=== PATIENT | female | born 1945 | race Caucasian/White ===

== ENCOUNTER 2018-08-30 07:57 | Emergency (ER) | payer MEDICARE, OTHER ==
[~2018-08-30] VITALS: Ht 157.5 cm; Wt 80.3 kg
[~2018-08-30 07:57] MED LIST: HYDR12.5 PO; METF-440 PO; ONDA4TAB11 PO; PANT20TA3 PO; PRED5TAB PO; TRAM50TA2 PO; VALS1TAB2 PO
[2018-08-30 08:02] VITALS: BP 171/74
[2018-08-30] MEDS ORDERED: KETOROLAC TROMETHAMINE INJ 30 MG/ML VIAL IM ONE ×2 (08:30→09:30)
--- NOTE | 2018-08-30 09:15 | NUR ---
Updated with plan of care medicated as per orders NAD await dispo
[2018-08-30] MEDS ORDERED: KETOROLAC TROMETHAMINE 15 MG/ML VIAL ONE (09:32)
--- NOTE | 2018-08-30 09:59 | NUR ---
Shoulder immobilizer applied by KONSTANTIN Gupta. For discharge- Aftercare Instructions given Home ambulatory Stable
== END 2018-08-30 10:00 | disposition home or self-care (01) ==
LOC: ER 07:57
DX: M25.511 Pain in right shoulder (principal); I10 Essential (primary) hypertension; E11.9 Type 2 diabetes mellitus without complications; M16.11 Unilateral primary osteoarthritis, right hip; Z90.710 Acquired absence of both cervix and uterus; Z85.43 Personal history of malignant neoplasm of ovary; Z79.84 Long term (current) use of oral hypoglycemic drugs; Z79.899 Other long term (current) drug therapy
CPT/HCPCS: 73030; 96372 ×2; 99283; J1885 ×2

== ENCOUNTER 2019-03-05 18:39 | Emergency (ER) | payer MEDICARE, OTHER ==
[~2019-03-05] VITALS: Ht 157.5 cm; Wt 81.6 kg
[2019-03-05] MEDS ORDERED: CEPHALEXIN MONOHYDRATE 500 MG CAPSULE PO ONE ×2 (19:16→19:30)
[2019-03-05] MEDS ORDERED: FUROSEMIDE 20 MG TABLET ONE (19:16)
[2019-03-05] MEDS ORDERED: SULFAMETH/TRIMETH 800/160 MG 1 UDTAB TABLET ONE (19:16)
[2019-03-05] MEDS ORDERED: FUROSEMIDE 20 MG TABLET PO ONE (19:30)
[2019-03-05] MEDS ORDERED: SULFAMETH/TRIMETH 800/160 MG 1 UDTAB TABLET PO ONE (19:30)
[2019-03-05 19:34] LABS: BASOPHILS % (AUTO) 0.1 % (0.0-2.0); EOSINOPHILS % (AUTO) 0.7 % (0.0-6.0); HEMATOCRIT 32 % (33-45); HEMOGLOBIN 10.6 g/dL (11.5-14.8); LYMPHOCYTES # (AUTO) 0.9 /CMM (0.8-4.8); LYMPHOCYTES % (AUTO) 9.5 % (20.0-44.0); MEAN CORPUSCULAR HGB CONC 33 g/dl (31.0-36.0); MEAN CORPUSCULAR VOLUME 89 fL (82-100); MONOCYTES # (AUTO) 0.6 /CMM (0.1-1.30); MONOCYTES % (AUTO) 6.8 % (2.0-12.0); NEUTROPHILS # (AUTO) 7.7 /CMM (1.8-8.9); NEUTROPHILS % (AUTO) 82.9 % (43.0-81.0); PLATELET COUNT (AUTO) 366 /CMM (150-450); RED BLOOD CELL COUNT(AUTO) 3.65 MIL/uL (4.0-5.2); WHITE BLOOD COUNT (AUTO) 9.3 K/uL (4.3-11.0)
--- NOTE | 2019-03-05 19:47 | NUR ---
BIB DAUGHTER FROM HOME TO ER BED 9. AAOX4. NO RESP DISTRESS NOTED. BREATHING EVEN AND UNLABORED. AMBULATORY. C/O BILAT LOWER LEG EDEMA. PER DAUGTHER, THE EDEMA STRATED BACK IN OCT OR NOVEMBER AND FEW WEEKS AGO SHE STARTED SCARTCHING HER LEG AND OBTAINED 2 PUNCTURE WOUND ON THE LEFT LATERAL LOWER LEG WHICH IS WEEPING WITH LIGHT YELLOW CLEAR FLUID. R LEG IN NOTED BIGGER THAN THE LEFT AND BOTH PRESENTS WITH REDNESS. EDEMA ON R LEG +2 AND L LEG +2. WAS AT BEDSIDE FOR EVAL. ORDERS RECEIVED NOTED AND CARRIED OUT. IV LINE OBTAINED ON RFA W/ 20G, BLOOD DRAWN AND GIVEN TO PERFUME MAKER AT BEDSIDE.
--- NOTE | 2019-03-05 19:47 | NUR ---
Note undone in EDM - 03/05/19 at 2201 by MONCHO BIB DAUGHTER FROM HOME TO ER BED 9. AAOX4. NO RESP DISTRESS NOTED. BREATHING EVEN AND UNLABORED. AMBULATORY. C/O BILAT LOWER LEG EDEMA. PER JESUSTHER, THE EDEMA STRATED BACK IN OCT OR NOVEMBER AND FEW WEEKS AGO SHE STARTED SCARTCHING HER LEG AND OBTAINED 2 PUNCTURE WOUND ON THE LEFT LATERAL LOWER LEG WHICH IS WEEPING WITH LIGHT YELLOW CLEAR FLUID. R LEG IN NOTED BIGGER THAN THE LEFT AND BOTH PRESENTS WITH REDNESS. EDEMA ON R LEG +4 AND L LEG +2. WAS AT BEDSIDE FOR EVAL. ORDERS RECEIVED NOTED AND CARRIED OUT. IV LINE OBTAINED ON RFA W/ 20G, BLOOD DRAWN AND GIVEN TO PARADICHLOROBENZENE MACHINE OPERATOR AT BEDSIDE.
[2019-03-05 19:54] LABS: B-TYPE NATRIURETIC PEPTIDE 718 PG/ML (0-125); CALCIUM, SERUM 9.3 mg/dL (8.5-10.1); CARBON DIOXIDE 26 mmol/L (21-32); CHLORIDE 105 mmol/L (98-107); CREATININE 1.7 mg/dL (0.6-1.3); GLUCOSE 168 mg/dL (74-106); POTASSIUM 4.5 mmol/L (3.5-5.1); SODIUM SERUM 141 mmol/L (136-145); UREA NITROGEN, BLOOD 34 mg/dL (7-18)
--- NOTE | 2019-03-05 21:59 | NUR ---
left lower leg wound covered with abdominal pad and wrapped with kerlix
[2019-03-05 22:12] VITALS: BP 143/77
--- NOTE | 2019-03-05 22:12 | NUR ---
Patient discharged to home in stable condition. Written and verbal after care instructions given. Patient verbalizes understanding of instruction.IV removed. Catheter intact and site benign. Pressure and 4x4 applied to site. No bleeding noted. Pt ambulatory with a steady gait
== END 2019-03-05 22:13 | disposition home or self-care (01) ==
LOC: ER 18:42
DX: L03.116 Cellulitis of left lower limb (principal); L03.115 Cellulitis of right lower limb; R60.0 Localized edema; I10 Essential (primary) hypertension; J45.909 Unspecified asthma, uncomplicated; E11.9 Type 2 diabetes mellitus without complications; Z90.710 Acquired absence of both cervix and uterus; Z98.890 Other specified postprocedural states; Z79.899 Other long term (current) drug therapy; Z79.84 Long term (current) use of oral hypoglycemic drugs; Z85.43 Personal history of malignant neoplasm of ovary
CPT/HCPCS: 36415; 71045; 80048; 83880; 84484; 85025; 93005; 93970; 99284; A6253

== ENCOUNTER 2019-05-24 19:46 | Emergency (ER) | payer MEDICARE, OTHER ==
[~2019-05-24] VITALS: Ht 157.5 cm; Wt 78.9 kg
--- NOTE | 2019-05-24 20:04 | NUR ---
PT BIBS C/O LEFT LEG WOUND, ON KELEX PRESCRIBED BY PMD, TO ER BED 4, SEEN BY .
[2019-05-24] MEDS ORDERED: HYDROCODONE/APAP 5/325MG 1 EACH TABLET ONE (20:28)
[2019-05-24] MEDS ORDERED: HYDROCODONE/APAP 5/325MG 1 EACH TABLET PO ONE (20:30)
[2019-05-24 20:44] LABS: BASOPHILS # (AUTO) 0.1 /CMM (0.0-0.2); BASOPHILS % (AUTO) 0.6 % (0.0-2.0); EOSINOPHILS % (AUTO) 0.6 % (0.0-6.0); HEMATOCRIT 32 % (33-45); HEMOGLOBIN 10.3 g/dL (11.5-14.8); LYMPHOCYTES # (AUTO) 0.9 /CMM (0.8-4.8); LYMPHOCYTES % (AUTO) 7.8 % (20.0-44.0); MEAN CORPUSCULAR HGB CONC 32 g/dl (31.0-36.0); MEAN CORPUSCULAR VOLUME 88 fL (82-100); MONOCYTES # (AUTO) 0.7 /CMM (0.1-1.30); MONOCYTES % (AUTO) 5.9 % (2.0-12.0); NEUTROPHILS # (AUTO) 10.3 /CMM (1.8-8.9); NEUTROPHILS % (AUTO) 85.1 % (43.0-81.0); PLATELET COUNT (AUTO) 270 /CMM (150-450); RED BLOOD CELL COUNT(AUTO) 3.65 MIL/uL (4.0-5.2); WHITE BLOOD COUNT (AUTO) 12.1 K/uL (4.3-11.0)
[2019-05-24 20:52] LABS: CALCIUM, SERUM 9.4 mg/dL (8.5-10.1); CARBON DIOXIDE 24 mmol/L (21-32); CHLORIDE 107 mmol/L (98-107); CREATININE 1.9 mg/dL (0.6-1.3); GLUCOSE 104 mg/dL (74-106); POTASSIUM 4.3 mmol/L (3.5-5.1); SODIUM SERUM 143 mmol/L (136-145); UREA NITROGEN, BLOOD 46 mg/dL (7-18)
[2019-05-24] MEDS ORDERED: CEFTRIAXONE 1 G VIAL ONE (20:59)
[2019-05-24] MEDS ORDERED: CEFTRIAXONE 1 G VIAL IM ONE (21:00)
[2019-05-24] MEDS ORDERED: LIDOCAINE 1%-EPI 1:100,000 20 ML VIAL ONE (21:01)
--- NOTE | 2019-05-24 21:34 | NUR ---
Patient discharged to home in stable condition. Written and verbal after care instructions given. Patient verbalizes understanding of instruction.
[2019-05-24 21:35] VITALS: BP 155/98
== END 2019-05-24 21:35 | disposition home or self-care (01) ==
LOC: ER 19:51
DX: L97.829 Non-pressure chronic ulcer of other part of left lower leg with unspecified severity (principal); I10 Essential (primary) hypertension; J45.909 Unspecified asthma, uncomplicated; E11.9 Type 2 diabetes mellitus without complications; Z85.43 Personal history of malignant neoplasm of ovary; Z90.710 Acquired absence of both cervix and uterus; Z90.89 Acquired absence of other organs; Z79.899 Other long term (current) drug therapy
CPT/HCPCS: 36415; 80048; 85025; 93971; 96372; 99284; J0696; J3490